=== PATIENT | male | born 1975 | race Caucasian/White ===

== ENCOUNTER 2019-08-29 17:51 | Emergency (ER) | payer OTHER ==
[~2019-08-29] VITALS: Ht 180.3 cm; Wt 154.2 kg
[~2019-08-29 17:51] MED LIST: [UNRECOGNIZED DRUG - CODE]
[2019-08-29 19:02] LABS: Basophils # (auto) 0 10 ^3/uL (0-0.2); Basophils % (auto) 0.5 % (0.0-2.0); Eosinophils # (auto) 0 10 ^3/uL (0-0.8); Eosinophils % (auto) 0.4 % (0.0-7.0); Hematocrit 43.8 % (41.0-53.0); Hemoglobin 14.6 g/dL (13.5-17.5); Lymphocytes # (auto) 1.4 10 ^3/uL (0.4-5.4); Mean Corpuscular Hemoglobin 29.1 pg (28.0-32.0); Mean Corpuscular Hgb Conc. 33.4 g/dL (32.0-36.0); Mean Corpuscular Volume 87.1 fL (80.0-100.0); Monocytes # (auto) 0.5 10 ^3/uL (0-1.3); Monocytes % (auto) 5.4 % (0.0-12.0); Neutrophils % (auto) 77.7 % (37.0-80.0); Nucleated Red Blood Cells % 0.1 %; Platelet Count (auto) 226 10^3/uL (140-450); Red Blood Cells 5.02 10^6/uL (4.5-5.90)
[2019-08-29 19:10] LABS: INR 1.07 (0.9-1.15); Partial Thromboplastin Time 23.5 sec (23.64-32.05)
[2019-08-29 19:15] LABS: Albumin 4.1 g/dL (3.4-5.0); Amylase 76 U/L (25-115); Anion Gap 9 (5-15); Blood Urea Nitrogen 25 mg/dL (7-18); Calcium 9.4 mg/dL (8.5-10.1); Carbon Dioxide 24 mmol/L (21-32); Chloride 105 mmol/L (98-107); Glucose 230 mg/dL (74-106); Lipase 170 U/L (73-393); Magnesium 2.2 mg/dL (1.6-2.6); Potassium 5.1 mmol/L (3.5-5.1); Sodium 138 mmol/L (136-145)
[2019-08-29 19:19] LABS: Lactic Acid w/Reflex 2.4 mmol/L (0.4-2.0)
[2019-08-29 19:21] LABS: Alanine Aminotransferase 51 U/L (16-61); Alkaline Phosphatase 52 U/L (45-117); Aspartate Aminotransferase 52 U/L (15-37); BUN/Creatinine Ratio 17.6; Bilirubin, Total 0.5 mg/dL (0.2-1.0); GFR African American 70 mL/min; GFR Non-African American 58 mL/min; Total Protein 8.7 g/dL (6.4-8.2)
[2019-08-29] MEDS ORDERED: ONDANSETRON HCL 4 MG/2 ML VIAL IV ONE (19:45)
[2019-08-29] MEDS ORDERED: SODIUM CHLORIDE 0.9% 2,000 ML IV ONE (19:45)
[2019-08-29 20:47] LABS: Urine Bacteria NONE SEEN /hpf (None Seen); Urine Blood Negative /uL (Negative); Urine Hyaline Cast MOD /lpf (0 - 2); Urine Mucus FEW (None Seen); Urine Specific Gravity 1.026 (1.001-1.035); Urine WBC 1 /hpf (0 - 3)
[2019-08-29] MEDS ORDERED: SODIUM CHLORIDE 0.9% 1,000 ML IV ONE (22:45)
[2019-08-29 23:49] VITALS: BP 117/49
[2019-08-30] MEDS ORDERED: cefTRIAXone 1GM/50ML D5W 50 ML IV ONE (00:45)
== END 2019-08-30 01:30 | disposition home or self-care (01) ==
LOC: ER 17:51
DX: Z03.818 Encounter for observation for suspected exposure to other biological agents ruled out (principal); K52.9 Noninfective gastroenteritis and colitis, unspecified; E11.9 Type 2 diabetes mellitus without complications; Z79.899 Other long term (current) drug therapy; I10 Essential (primary) hypertension
CPT/HCPCS: 36415; 74176; 80053; 81001; 82150; 82728; 82962; 83605; 83690; 83735; 84484; 85025; 85610; 85730; 87070; 87804; 87880; 96361; 96374; 96375; 99284; J0696; J2405; J7030; U0003